=== PATIENT | female | born 1945 | race Caucasian/White ===

== ENCOUNTER 2020-01-08 14:44 | Outpatient (CLI) | payer MEDICARE, SELFPAY ==
--- NOTE | 2020-01-08 14:57 | USCV_ITS ---
Sunshine Harry Age: 74 Gender: F : 1945 Exam Date: 01/08/2020 15:17 Ordering Phys: Jessi Matta APN Technologist: Neisha Lee [place] [facility] [place] PAIN IN LEG/CELLULITIS HISTORY: Edema. Lower extremity pain. PROCEDURES: Venous duplex imaging was performed in only the left lower extremity. The following venous structures were evaluated: common femoral vein, profunda vein, proximal portion of the greater saphenous vein, superficial femoral vein, and the popliteal vein. In addition, the posterior tibial and peroneal trunk were evaluated. FINDINGS: Normal 2-D Doppler and augmentation and compressibility throughout the lower extremity venous structures. Additional imaging through the proximal calf veins also reveals no thrombus. Limited evaluation of the greater saphenous vein is patent with no thrombus. CONCLUSIONS No DVT left lower extremity. Dr. Telma Sykes DO (Electronically Signed) Final Date: 08 January 2020 16:15 S
== END 2020-01-08 14:45 | disposition home or self-care (01) ==
LOC: RAD 14:51
PROVIDERS: PCP Nurse Practitioner; Visit Provider Nurse Practitioner
DX: L03.116 Cellulitis of left lower limb (principal); M79.605 Pain in left leg; M79.89 Other specified soft tissue disorders
CPT/HCPCS: 93971

== ENCOUNTER 2020-10-23 08:05 | Outpatient (CLI) | payer MEDICARE, SELFPAY | END 2020-10-23 08:06 | disposition home or self-care (01) | LOC: WOUND 08:06 | PROVIDERS: PCP Nurse Practitioner; Visit Provider Thoracic Surgery (Cardiothoracic Vascular Surgery) | DX: L03.116 Cellulitis of left lower limb (principal) | CPT/HCPCS: 99203; G0463 ==

== ENCOUNTER 2020-10-28 06:00 | Outpatient (RCR) | payer MEDICARE, SELFPAY | END 2020-11-01 23:59 | disposition home or self-care (01) | LOC: SPT 06:00 | PROVIDERS: PCP Nurse Practitioner; Referring Provider Thoracic Surgery (Cardiothoracic Vascular Surgery); Visit Provider Thoracic Surgery (Cardiothoracic Vascular Surgery) | DX: I89.0 Lymphedema, not elsewhere classified (principal) | CPT/HCPCS: 97161 ==

== ENCOUNTER 2020-10-30 08:13 | Outpatient (CLI) | payer MEDICARE, SELFPAY | END 2020-10-30 08:14 | disposition home or self-care (01) | LOC: WOUND 08:14 | PROVIDERS: PCP Nurse Practitioner; Visit Provider Thoracic Surgery (Cardiothoracic Vascular Surgery) | DX: I83.12 Varicose veins of left lower extremity with inflammation (principal); I83.11 Varicose veins of right lower extremity with inflammation | CPT/HCPCS: 99212 ==

== ENCOUNTER 2020-11-02 06:00 | Outpatient (RCR) | payer MEDICARE, SELFPAY | END 2020-11-11 23:00 | disposition home or self-care (01) | LOC: SPT 06:00 | PROVIDERS: PCP Nurse Practitioner; Referring Provider Thoracic Surgery (Cardiothoracic Vascular Surgery); Visit Provider Thoracic Surgery (Cardiothoracic Vascular Surgery) | DX: I89.0 Lymphedema, not elsewhere classified (principal) | CPT/HCPCS: 97140 ==

== ENCOUNTER 2020-11-06 08:07 | Outpatient (CLI) | payer MEDICARE, SELFPAY | END 2020-11-06 08:08 | disposition home or self-care (01) | LOC: WOUND 08:08 | PROVIDERS: PCP Nurse Practitioner; Visit Provider Thoracic Surgery (Cardiothoracic Vascular Surgery) | DX: Z09 Encounter for follow-up examination after completed treatment for conditions other than malignant neoplasm (principal) | CPT/HCPCS: 99212 ==

== ENCOUNTER 2020-11-26 13:01 | Outpatient (CLI) | payer MEDICARE, SELFPAY ==
--- NOTE | 2020-11-26 13:12 | USCV_ITS ---
Piero Sunshine Age: 75 Gender: F : 1945 Exam Date: 11/26/2020 13:56 Ordering Phys: Dmitry Pandey MD (Andy) ([email or web address]) Technologist: Aneta Nelson Exam Location: [facility] [place] Indication: HISTORY: PROCEDURES: FINDINGS: Significant venous reflux of greater than 500 ms were noted in the left distal greater saphenous vein segment. The veins were found to be easily compressible with spontaneous blood flow. Non pulsatile flow pattern. Multiple echolucent areas were noted in the subcutaneous tissue bilaterally CONCLUSIONS 1. No evidence of DVT in the above-mentioned identifiable veins. 2. Significant venous reflux of greater than 500 ms were noted at the distal segment of the greater saphenous vein on the left side. Venous segment was measuring 0.54 cm in diameter and was at a depth of 2.06 cm. 3. No significant reflux in the deep venous system. 4. Features of fluid retention/edema bilaterally in the below-knee areas Dr Liz Chacon MD [facility]ACC (Electronically Signed) Final Date: 02 Dec 2020 10:51 S
== END 2020-11-26 13:02 | disposition home or self-care (01) ==
LOC: RAD 13:10
PROVIDERS: PCP Nurse Practitioner; Visit Provider Thoracic Surgery (Cardiothoracic Vascular Surgery)
DX: I83.11 Varicose veins of right lower extremity with inflammation (principal); I83.12 Varicose veins of left lower extremity with inflammation
CPT/HCPCS: 93970

== ENCOUNTER → 2021-03-19 09:17 | Outpatient (BNVA) | payer MEDICARE, SELFPAY | PROVIDERS: PCP Nurse Practitioner; Visit Provider Thoracic Surgery (Cardiothoracic Vascular Surgery) | DX: Z01.818 Encounter for other preprocedural examination (principal); Z20.822 Contact with and (suspected) exposure to COVID-19 | CPT/HCPCS: 87635 ==

== ENCOUNTER → 2021-04-30 09:08 | Outpatient (BNVA) | payer MEDICARE, SELFPAY | PROVIDERS: PCP Nurse Practitioner; Visit Provider Thoracic Surgery (Cardiothoracic Vascular Surgery) | DX: I83.90 Asymptomatic varicose veins of unspecified lower extremity (principal); Z20.822 Contact with and (suspected) exposure to COVID-19 | CPT/HCPCS: 87635 ==

== ENCOUNTER 2021-05-05 05:48 | Day surgery (SDC) | payer MEDICARE, SELFPAY ==
[2021-05-05 06:22] VITALS: BMI 43.2
[2021-05-05 06:44] VITALS: BP 161/94; PULSE 71; RESP 15; O2SAT 96
[2021-05-05 06:50] VITALS: BP 161/94; PULSE 71; RESP 15; TEMP 36.4; O2SAT 96
--- NOTE | 2021-05-05 06:58 | USCV_ITS ---
Sunshine Harry Age: 75 Gender: F : 1945 Exam Date: 05/05/2021 07:23 Ordering Phys: Dmitry Pandey MD (Andy) ([email or web address]) Technologist: Exam Location: [facility] [place] Indication: LT LEG GSAPH ABLATION PROCEDURES: LT LEG GSAPH ABLATION FINDINGS: GOOD ABLATION OF GSAPH ON LT EPIGASTRIC IS OPEN AND GOOD FLOW Patent saphenofemoral junction, proximal greater saphenous vein and the inferior epigastric vein CONCLUSIONS 1. The catheter tip was found to be 3.1 cm away from the saphenofemoral junction. 2. Patent saphenofemoral junction and inferior epigastric vein Dr Liz Chacon MD [facility] (Electronically Signed) Final Date: 05 May 2021 17:53 S
[2021-05-05] MEDS: diazePAM 5 mg Tablet PO (07:15)
--- NOTE | 2021-05-05 08:09 | P.OP_ITS ---
Operative Report Date of procedure: May 05, 2021 Pre-op Diagnosis: Left lower extremity venous insufficiency with ulceration Post-op diagnosis: same Procedure Done: Left greater saphenous vein radiofrequency catheter ablation Pathology: none sent Surgeon: Dmitry Pandey Anesthesia: Local Complications: None Condition: stable Disposition: same day Brief History: Ms. Harry is a 75-year-old female with recurrent cellulitis and superficial ulceration of the left lower extremity with documented left greater saphenous vein venous reflux; CEAP classification C4. She has had modest symptomatic relief with compressive therapy but due to her recurrent cellulitis and ulcerations, consideration for left greater saphenous vein ablation has been discussed and recommended. Details risk of the procedure were carefully and frankly discussed. Proper consents have been reviewed and signed. Procedure: The insufficient left greater saphenous vein was verified by ultrasound and diagrammed on the overlying skin. The varicose tributary veins and suitable access sites were identified and mapped. The affected left lower extremity was prepped and draped in the usual sterile fashion. The patient was placed in reverse Trendelenburg position. Tumescent was instilled in the skin overlying the access site for local anesthesia. The vein was accessed proximal calf using ultrasound guidance and the Seldinger technique, a guidewire was introduced through the needle, which was then exchanged over the guidewire for a 7F sheath. The RF catheter was placed on the sterile field, flushed and wiped down, prepared, and connected by a sterile cable. The patient was placed in Trendelenburg position. After RF catheter position was verified by ultrasound, tumescent anesthesia was infiltrated, under ultrasound guidance, precisely into the perivenous compartment along the entire length of vein. After the RF catheter position was again confirmed with ultrasound imaging, and under direct external compression along the length of the heating element, RF energy was applied. The vein was segmentally ablated until the treatment length is completed. Device temperature was maintained at 120 +/- degrees C with an initial power level of 40W dropping to below 20W for each treatment. Total vein length treated 37 cm. Vein diameter 2 cm. Total cycles of RF 13. Time 4 minut es and 20 seconds. Total volume tumescence used 250 cc. Repeat ultrasound of the left greater saphenous vein was performed, confirming successful treatment. The catheter and sheath were withdrawn and hemostasis established with direct pressure. After assuring hemostasis, the skin incision over the saphenous vein was closed with a bandage and graduated compression stocking(s) was applied from the level of the foot to the most proximal length of the thigh.
[2021-05-05 08:32] VITALS: BP 181/87; PULSE 60; RESP 15; TEMP 36.7; O2SAT 95
== END 2021-05-05 10:15 | disposition home or self-care (01) ==
PROVIDERS: PCP Nurse Practitioner; Visit Provider Thoracic Surgery (Cardiothoracic Vascular Surgery)
PROC: (CPT 36475; principal; 2021-05-05 07:00)
DX: I87.8 Other specified disorders of veins (principal); L03.116 Cellulitis of left lower limb
CPT/HCPCS: 36475; C1769; C1888; C1894; J7040; J7050

== ENCOUNTER 2021-05-12 14:15 | Outpatient (CLI) | payer MEDICARE, SELFPAY ==
--- NOTE | 2021-05-12 14:15 | USCV_ITS ---
Piero Sunshine Age: 75 Gender: F : 1945 Exam Date: 05/12/2021 14:36 Ordering Phys: Dmitry Pandey MD (Andy) ([email or web address]) Technologist: Exam Location: [facility] [place] Indication: POST LT SAPH ABLATION PROCEDURES: Venous duplex imaging was performed in only the left lower extremity. The following venous structures were evaluated: common femoral vein, the femoral vein, and prox great saph. FINDINGS: NORMAL FLOW IN LT EPIGASTRIC. ABLATION THROMBUS IS 1.7 CM FROM THE EPIGASTRIC. THERE IS COMPLE OCCLUSION OF THE PROX AND MID LT SAPH. THE CFV AND FV ON LT ARE NORMAL CONCLUSIONS No evidence of DVT in the common femoral and femoral vein on the left side. The saphenofemoral junction and the inferior epigastric veins are spared. Thrombus is noted in the proximal and mid greater saphenous vein causing total occlusion. Dr Liz Chacon MD FAC (Electronically Signed) Final Date: 13 May 2021 07:44 S
== END 2021-05-12 14:16 | disposition home or self-care (01) ==
LOC: US 14:19
PROVIDERS: PCP Nurse Practitioner; Visit Provider Thoracic Surgery (Cardiothoracic Vascular Surgery)
DX: I83.90 Asymptomatic varicose veins of unspecified lower extremity (principal); I82.492 Acute embolism and thrombosis of other specified deep vein of left lower extremity
CPT/HCPCS: 93971

== ENCOUNTER 2022-01-14 11:12 | Emergency (ER) | payer MEDICARE, SELFPAY ==
[2022-01-14] VITALS (7 sets, daily range): BP systolic 193–234; BP diastolic 121–128; PULSE 76–98; RESP 8–18; O2SAT 93–98
--- NOTE | 2022-01-14 11:14 | ED_ITS ---
HPI - Altered Mental Status General: Chief Complaint: Altered Mental Status Stated Complaint: unresponsive Time Seen by Provider: 01/14/22 11:13 Limitations: altered mental status History of Present Illness: Ms. Harry is a 76-year-old lady with history of hypertension who presents to the emergency department due to altered mental status. Per EMS report later confirmed by family last known well was when she went to bed last night. She was heard snoring this morning and then checked on just prior to coming to the emergency department and found to be unresponsive. History is otherwise limited by patient's mental status. After clarification clinical history no recent changes in health. Apparently EMS found the patient to be 82% on room air. Onset (ago): hour(s) Severity: severe Consistency of symptoms: Unknown Treatments prior to arrival: oxygen Review of Systems General: Reports: ROS unobtainable due to mental status PFS ED PFSH: Medical History Venous stasis Surgical History Status post endovenous radiofrequency ablation of saphenous vein Family History Mother CAD (coronary artery disease) Sister CAD (coronary artery disease) Brother CAD (coronary artery disease) Cancer Diabetes Other Suicide Denies family history of Hyperlipidemia Psychiatric illness Lung disease Hypertension Stroke Social History Alcohol intake: never Lives independently: Yes Household members: spouse Marital status: Physical Exam Const: GENERAL APPEARANCE: ill appearing NUTRITIONAL APPEARANCE: obese ORIENTATION/CONSCIOUSNESS: Yes patient obtunded HENMT: COMMON NORMALS: normocephalic and atraumatic HEAD & SCALP: normocephalic and atraumatic THROAT: posterior oropharynx normal OTHER: Oral secretions and airway suctioned. Upper dentures removed prior to intubation Eye: COMMON NORMALS: conjunctivae normal CONJUNCTIVA: Yes conjunctivae normal SCLERA: sclerae normal OTHER: Pupils 4 mm bilaterally, not reactive to light, no reflex to threat Neck/C-Spine: COMMON NORMALS: supple GENERAL: Yes trachea midline Resp: COMMON NORMALS: normal respiratory effort EFFORT & INSPECTION: Yes labored AUSCULTATION: bronchial breath sounds Cardio: COMMON NORMALS: regular rate and regular rhythm RATE: regular rate RHYTHM: regular rhythm GI: COMMON NORMALS: Soft to palpation PALPATION: Yes Soft to palpation and No Tenderness to palpation present (GI) PERCUSSION: normal to percussion Extremity: GENERAL: Yes normal exam except as noted and No edema Neuro: SENSORIUM/ORIENTATION: Yes obtunded Psych: MEMORY/COGNITION: Yes cognition grossly impaired Procedures Arterial Line Time Out Performed: Yes Size (Gauge): 18 Technique Used: guide wire technique Post-Procedure: line sutured into place and dry sterile dressing placed Patient Tolerated Procedure: well and no complications Complications: none Site: left and radial Additional Comments: ultrasound guided Intubation Time out performed: Yes sedative: Etomidate Mg Given: 30 paralytic: Vecuronium Mg Given: 10 Laryngoscope: fiber optic video scope ET Tube Size: 8 ET Tube Uncuffed: No Tube Secured Depth (cm): 23 Tube Secured Location: teeth Tube Placement Confirmation: visualized tube passing through cords, equal breath sounds bilaterally, no breath sounds over epigastrium and confirmation by capnometry (Colorimetric) Patient Tolerated Procedure: well Intubation Complications: none Course ED course: - Patient was seen and evaluated by me at bedside - Patient placed on cardiac monitors, IV access obtained - Initial evaluation notable for ill appearance. GCS 3. Patient has oral secretions which were suctioned however patient not adequately protecting airway and I made the decision to intubate the patient. Glucose in the 180s range prior to intubation. No evidence of hypercapnia resulting in mental status change on initial ABG. - Patient intubated as noted in procedures with glide scope and 8.0 cuffed ET tube. X-ray reviewed at bedside with satisfactory placement approximately 1-2 i nches above the amanda. - Labs and xrays personally interpreted by me. - Propofol ordered for sedation along with fentanyl drip - Labs notable for leukocytosis, mild hemoconcentration. Metabolic panel with decreased anion gap, creatinine elevated with unclear baseline. Initial lactate elevated at 3.4 with significant increased to 11.5 on repeat. Baseline troponin 100 with delta troponin of 100.6 up to a total of 200.6. BNP elevated 7300 - Unclear etiology of NSTEMI. EKG shows new onset atrial fibrillation however rate is controlled and there are nonspecific ST segment abnormalities however no STEMI. - Given leukocytosis with elevated lactic acid 30 cc/kg ideal body weight fluid bolus ordered along with empiric antibiotic dose of Zosyn due to consideration of complex infection as cause of altered mental status - Imaging notable for increased density throughout the superior sagittal sinus consistent with acute superior sagittal sinus thrombosis with increased density extending into the straight sinus and transverse sinuses. Small amount of blood and calcification along the anterior and interhemispheric falx. CT chest abdomen pelvis without contrast without other significant acute pathology to explain symptoms, there is moderate bilateral pulmonary opacifications which radiology reports is more likely atelectasis or lower lung volumes though underlying mass or pneumonia cannot be excluded. - OG tube placed. - Upon serial reexamination after treatment the patient was similar. She did have movements in bilateral lower extremities but did not follow commands. - Based on patient history, evaluation, and testing as interpreted the most likely cause of the patient's condition is cerebral venous thrombosis resulting in altered mental status - The results of ED evaluation were discussed with the patient's family including plan for transfer due to requirement for level of care not available if discharged to prevent significant worsening/deterioration. Specifically pat ient requires neuro critical care and potential neurosurgical assessment - Discussed with Dr. Martinez at [facility] in [facility] who accepted the patient as a transfer. - Arterial line placed noting hypertension consistent with cuff pressure We will plan for gentle blood pressure control. Upon radiology review of CTV somewhat limited however more consistent with slow flow as opposed to thrombosis, still somewhat unclear. [id number] echo performed with limited sonographic windows of the cardiac structures. RA and LA appear dilated consistent with A. fib. Estimate mildly reduced ejection fraction. - Etiology of symptoms remains somewhat unclear. The patient was mildly hypoxic upon EMS arrival which was not initially noted however initial ABG prior to intubation with supplemental oxygen in place was relatively unremarkable given severity of patient's symptoms. Anoxic brain injury seems less likely but more consistent with imaging. Unfortunate situation. Discussed case with neurology after initial CT scan read and later during care. Patient outside tPA window given unclear time of symptom onset and likely contraindicated further given severity of NIHSS so patient was not stroke activated upon initial arrival. - Given critical nature of patient condition including potential time sensitive neurosurgical assessment patient requires fastest available needs of transfer Note: Click bubbles or prepopulated schafer in note writing are used for assistance with data collection and billing and are inherently more limited than narrative and other text portions of this note. Please use narrative for additional clinical history and defer to narrative/free test for any case of contradictory information. If information appears in only free text or click bubble it should be considered present or absent as reported. Please contact note freelance copywriter for clarifications of clinical information or contradictory information. MDM is a brief summary, contradictory or erroneous seeming information should be clarified and full note should be reviewed. Vital Signs: Vital signs: Vital Signs Pulse Rate 76 01/14/22 15:04 Respiratory Rate 16 01/14/22 15:04 Blood Pressure 199/123 01/14/22 15:04 Pulse Oximetry 96 01/14/22 15:04 MDM - Altered Mental Status Medical Decision Making 76-year-old lady presenting with altered mental status. Patient went to bed normal last night and was found approximately 11 AM this morning with unresponsiveness. Patient GCS of 3 upon arrival and patient intubated. Initial CT without contrast of the head concerning for venous sinus thrombosis however upon obtaining CTV this seems less clear. Exact etiology of patient's altered mental status is unclear, neurologic exam certainly concerning for poor prognosis. Given patient's need for neuro critical care as well as possible neurosurgery for ICP monitoring she will be transferred and was accepted at [facility] for further management. Updated family at bedside. Left emergency department with air EMS crew in critical condition with unclear prognosis. Medical Records I reviewed the patient's medical records. Lab Data I reviewed the patient's lab results. : 01/14/22 11:21 01/14/22 11:[address] 01/14/22 11:14 IMPRESSION: 1. Increased density throughout the superior sagittal sinus consistent with an acute superior sagittal sinus thrombosis. Increased density extends along the straight sinus and the transverse sinuses. This increased density is most typically seen with acute thrombosis of the venous sinuses. Similar hyperdense sinus can be seen with a very high hematocrit level. 2. Small amount of blood or calcification along the anterior interhemispheric falx. Notified Demetrio Black MD at 01/14/2022 1:06 PM. Chest/Abdomen/Pelvis CT 01/14/22 11:34 IMPRESSION: 1. Endotracheal tube in good position. 2. Moderate bilateral pulmonary opacifications, probably atelectasis and low lung volumes. Underlying mass or pneumonia may also be present. 3. No acute abdominal or pelvic abnormalities are identified. 4. Prior cholecystectomy. 5. Moderate fluid distention of the stomach. 6. Bilateral renal atrophy with LEFT renal cyst. 7. Soft tissue stranding along the midline of the anterior chest. May be due to recent trauma or chest compression. Chest X-Ray 01/14/22 13:18 Impression: OG tube probably within the stomach. Head CTA 01/14/22 13:38 IMPRESSION: 1. Poor opacification superior sagittal sinus. This may be due to partial thrombosis or slow flowing blood or elevated hematocrit. 2. Loss of the marshall-white matter differentiation diffusely suggesting of an d iffuse ischemic event. Poor opacification of the cerebral veins may be related to poor cardiac output and poor perfusion to the brain. Findings are suspicious for diffuse acute anoxic event. Also since the prior examination earlier there is questionable increase in the cerebral edema. 24-hour CT follow-up would help confirm this finding. Notified Demetrio Black MD at 01/14/2022 3:09 PM. Laboratory Results WBC 15.0 10^3/uL (4.0-10.0) H 01/14/22 11:21 RBC 4.91 10^6/uL (4.1-5.3) 01/14/22 11:21 Hgb 16.4 g/dL (11.5-15.3) H 01/14/22 11:21 Hct 46.7 % (37.0-47.0) 01/14/22 11:21 MCV 95.1 fl (81-99) 01/14/22 11:21 MCH 33.4 pg (28.0-34.0) 01/14/22 11:21 MCHC 35.1 g/dL (30.0-36.0) 01/14/22 11:21 RDW 12.7 % (12.1-15.1) 01/14/22 11:21 Plt Count 219 10^3/cmm (130-400) 01/14/22 11:21 MPV 10.4 fL (7.4-10.4) 01/14/22 11:21 Neut % (Auto) 90.4 % 01/14/22 11:21 Lymph % (Auto) 5.7 % 01/14/22 11:21 [place] % (Auto) 3.1 % 01/14/22 11:21 Eos % (Auto) 0.0 % 01/14/22 11:21 Baso % (Auto) 0.3 % 01/14/22 11:21 Neut # (Auto) 13.54 10^3/uL (1.8-7.7) H 01/14/22 11:21 Lymph # (Auto) 0.9 10^3/uL (0.8-4.8) 01/14/22 11:21 [place] # (Auto) 0.5 10^3/uL (0.2-0.9) 01/14/22 11:21 Eos # (Auto) 0.0 10^3/uL (0.0-0.8) 01/14/22 11:21 Baso # (Auto) 0.1 10^3/uL (0.0-0.1) 01/14/22 11:21 Nucleated RBC % (auto) 0 % 01/14/22 11:21 Nucleated RBCs # 0.0 /100WBC 01/14/22 11:21 PT 14.50 SECONDS (12.1-14.9) 01/14/22 16:09 INR 1.10 (0.8-1.2) 01/14/22 16:09 APTT 35.8 SECONDS (23.9-36.7) 01/14/22 16:09 Specimen Type Arterial 01/14/22 13:00 Sample Site Brachial, left 01/14/22 13:00 ABG pH 7.47 (7.35-7.45) H 01/14/22 13:00 ABG pCO2 34.8 mmHg (35-45) L 01/14/22 13:00 ABG pO2 179.0 mmHg (80.0-100.0) H 01/14/22 13:00 ABG HCO3 25.5 mmol/L (22-26) 01/14/22 13:00 ABG Base Excess 2.3 mmol/L (-2.0-2.0) H 01/14/22 13:00 Manjit Test Pos 01/14/22 13:00 Hematocrit 50.8 % (37-47) H 01/14/22 13:00 O2 Delivery Device Vent 01/14/22 13:00 O2 Liters/Min 3.5 % 01/14/22 11:20 FiO2 70.0 % 01/14/22 13:00 Tidal Volume 0.50 01/14/22 13:00 PEEP 5.0 cmH20 01/14/22 13:00 Automatic Machine Attendant ID Cak 01/14/22 13:00 Sodium 140 mmol/L (136-145) 01/14/22 11:21 Potassium 4.1 mmol/L (3.5-5.1) 01/14/22 11:21 Chloride 99 mmol/L (98-107) 01/14/22 11:21 Carbon Dioxide 25 mmol/L (22-29) 01/14/22 11:21 Anion Gap 20.1 (5-19) H 01/14/22 11:21 BUN 22 mg/dL (8-23) 01/14/22 11:21 Creatinine 1.7 mg/dL (0.5-0.9) H 01/14/22 11:21 GFR Calculation Not Reportable 01/14/22 11:21 Glucose 189 mg/dL (65-115) H 01/14/22 11:21 POC Glucose 186 mg/dL (70-110) H 01/14/22 11:18 Calculated Osmolality 298 mOsm/kg (285-295) H 01/14/22 11:21 Lactic Acid 11.5 mmol/L (0.5-2.2) H* 01/14/22 13:31 Lactic Acid (Sepsis) 8.1 mmol/L (0.5-2.2) H* 01/14/22 15:48 Lactate 3.4 mmol/L (0.5-2.2) H 01/14/22 11:21 Calcium 9.6 mg/dL (8.5-10.5) 01/14/22 11:21 Magnesium 1.9 mg/dL (1.7-2.3) 01/14/22 11:21 Total Bilirubin 0.7 mg/dL (0.15-1.2) 01/14/22 11:21 AST 22 U/L (0-32) 01/14/22 11:21 ALT 17 U/L (0-33) 01/14/22 11:21 Alkaline Phosphatase 97 IU/L (35-105) 01/14/22 11:21 Troponin T Baseline 100 ng/L (0-10) H 01/14/22 11:21 Troponin T 120 Minute 200.6 ng/L (0-10) H 01/14/22 13:31 Delta Troponin T 100.6 ABS# (0-10) H* 01/14/22 13:31 Troponin T Hi Sens 6Hr 388.1 ng/L (0-10) H 01/14/22 17:28 Troponin T Hi Sens 6Hr Delta 288.1 ng/L (0-12) H* 01/14/22 17:28 C-Reactive Protein 5.5 mg/L (0.0-4.9) H 01/14/22 11:21 NT-Pro-B Natriuret Pep 7353 pg/mL (0-450) H 01/14/22 11:21 Total Protein 7.6 g/dL (6.6-8.7) 01/14/22 11:21 Albumin 4.1 g/dL (3.5-5.2) 01/14/22 11: Globulin 3.5 g/dL (1.3-4.6) 01/14/22 11: TSH 3.15 uIU/mL (0.27-4.20) 01/14/22 11:21 Urine Color Yellow (Yellow) 01/14/22 15:05 Urine Appearance Clear (CLEAR) 01/14/22 15:05 Urine pH 6 (5-7) 01/14/22 15:05 Ur Specific [place] 1.020 (1.005-1.030) 01/14/22 15:05 Urine Protein 2+ (Negative) H 01/14/22 15:05 Urine Glucose (UA) Norm (Normal) 01/14/22 15:05 Urine Ketones Negative (Negative) 01/14/22 15:05 Urine Blood 3+ (Negative) H 01/14/22 15:05 Urine Nitrate Negative (Negative) 01/14/22 15:05 Urine Bilirubin Neg (Negative) 01/14/22 15:05 Urine Urobilinogen Norm mg/dL (Negative) 01/14/22 15:05 Ur Leukocyte Esterase Negative (Negative) 01/14/22 15:05 Urine RBC 0-4 /hpf (0-2) H 01/14/22 15:05 Urine WBC 5-10 /hpf (0-5) H 01/14/22 15:05 Ur Squamous Epith Cells 0-4 /hpf (0-5) H 01/14/22 15:05 Amorphous Sediment Not Reportable 01/14/22 15:05 Urine Bacteria Trace /hpf (NONE) 01/14/22 15:05 Salicylates < 0.3 mg/dL (3-10) L 01/14/22 11:21 Acetaminophen < 5.0 ug/mL (10-30) L 01/14/22 11:21 Ethyl Alcohol < 10 mg/dL (0-10) 01/14/22 11:21 SARS-CoV-2 Ag (Rapid) Negative (Negative) 01/14/22 16:45 Critical Care Time Critical Care Time: Critical Care Time: Yes Total Critical Care Time: 120 Attestation: Due to a high probability of clinically significant, possibly life threatening deterioration, the patient required my highest level of attention and preparedness to intervene emergently and I personally spent this critical care time directly and personally managing the patient. This critical care time included obtaining a history; examining the patient; pulse oximetry; ordering and review of laboratory and imaging studies; arranging urgent treatment with development of a management plan; evaluation of patient's response to treatment; frequent reassessment; and, discussions with other providers as applicable. It was exclusive of separately billable procedures. Primary system involved is neuro Discharge Plan Discharge Patient Disposition: Xfer Short-Term Hosp Clinical Impression: Altered mental status, Acute respiratory failure with hypoxia, Hypertension, Acidosis, lactic, Leukocytosis, Acute non-ST elevation myocardial infarction (NSTEMI), Atrial fibrillation, new onset Condition: Critical Referrals: Jessi Matta APN [Primary Care Provider] - Coding Level of Care Code ED Disability Counselor for Chg Fwd Exam Comprehensive
--- NOTE | 2022-01-14 11:14 | CT_ITS ---
WS: [id number] CT HEAD NONCONTRAST HISTORY: ams TECHNIQUE: Contiguous axial imaging performed through the brain in 2.5 mm imaging. Bone and soft tiss ue windows. Sagittal and coronal reformats reviewed. All CT scans at [facility] use at least one of these dose optimization techniques: automated exposure control; mA and/or kV adjustment per pa tient size (includes targeted exams where dose is matched to clinical indication); or iterative recon struction. DLP: 1057.18 mGy.cm COMPARISON: None available. Quality of this examination is suboptimal. Increased density along the superior sagittal sinus to the level of the torcula. Increased density ex tends into the transverse sinuses. There is a small amount of increased density along the anterior in terhemispheric falx which could be calcification or blood. Very minimal atrophy. No hemorrhagic infarct. Slight loss of the marshall-white matter could be due to p oor technique. Small amount of intracranial edema may appear similar. Ventricles: Normal size with no hydrocephalus. No inferior displacement of cerebellar tonsils. Paranasal sinuses: As visualized are clear. Mastoid air cells: Well pneumatized. Calvarium and scalp: Skull is intact with no soft tissue edema or swelling. CT/CT head wo con* [id number] IMPRESSION: 1. Increased density throughout the superior sagittal sinus consistent with an acute superior sagittal sinus thrombosis. Increased density extends along the straight sinus and the transverse sinuses. This increased density is most typic ally seen with acute thrombosis of the venous sinuses. Similar hyperdense sinus can be seen with a very high hematocrit level. 2. Small amount of blood or calcification along the anterior interhemispheric falx. Notified Demetrio Black MD at 01/14/2022 1:06 PM.
--- NOTE | 2022-01-14 11:14 | XR_ITS ---
WS: [id number] Portable AP supine chest, 01/14/2022 Clinical Data: ams Comparison: None. Findings: The endotracheal tube has been inserted and remains above the trachea. No pneumothorax is s een. There is a monitor lead over the left upper chest. XR/XR chest 1V portable [id number] Impression: Satisfactory insertion of endotracheal tube.
--- NOTE | 2022-01-14 11:15 | ECG_ITS ---
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 Measurements Intervals [place] Rate: 67 P: [place]: QRS: 39 QRSD: 101 T: 60 QT: 450 QTc: 477 Interpretive Statements ATRIAL FIBRILLATION SEPTAL MYOCARDIAL INFARCTION , OF INDETERMINATE AGE [40+ ms Q WAVE IN V1/V2] Compared to ECG 01/14/2022 12:03:36 ST (T wave) deviation no longer present Myocardial infarct finding still present Electronically Signed On 01-14-2022 23:41:49 CDT by Liz Chacon M.D. [id number]
[2022-01-14 11:21] LABS: Glucose Point of Care 186 mg/dL (70-110)
[2022-01-14 11:30] LABS: ABG PCO2 38.5 mmHg (35-45); ABG PH Result 7.46 (7.35-7.45); Arterial Blood Gas Hematocrit 51.6 % (37-47); Base Excess ABG 3.2 mmol/L (-2.0-2.0); Blood Gas Allen Test Pos; Blood Gas LPM 3.5 %; Blood Gas Sample Site Radial, left; Blood Gas Sample Type Arterial; HCO3 ABG 27.2 mmol/L (22-26); Oxygen Device NC
[2022-01-14 11:30] LABS: Basophils # 0.1 10^3/uL (0.0-0.1); Basophils % 0.3 %; Hematocrit 46.7 % (37.0-47.0); Hemoglobin 16.4 g/dL (11.5-15.3); Lymphocytes # 0.9 10^3/uL (0.8-4.8); Lymphocytes % 5.7 %; Mean Corpuscular HGB Conc 35.1 g/dL (30.0-36.0); Mean Corpuscular Hemoglobin 33.4 pg (28.0-34.0); Mean Corpuscular Volume 95.1 fl (81-99); Mean Platelet Volume 10.4 fL (7.4-10.4); Monocytes # 0.5 10^3/uL (0.2-0.9); Monocytes % 3.1 %; Neutrophils # 13.54 10^3/uL (1.8-7.7); Neutrophils % 90.4 %; Nucleated Red Blood Cells % 0 %; Platelet Count 219 10^3/cmm (130-400); Red Blood Count 4.91 10^6/uL (4.1-5.3); Red Cell Distribution Width 12.7 % (12.1-15.1)
[2022-01-14] MEDS: vecuronium 10 mg SDV IVP (11:32)
--- NOTE | 2022-01-14 11:34 | CT_ITS ---
WS: [id number] CT CHEST, ABDOMEN AND PELVIS NONCONTRAST HISTORY: AMS TECHNIQUE: Contiguous 5 mm axial imaging performed through the chest, abdomen and pelvis without IV c ontrast, oral contrast has not been provided. Coronal and sagittal reformats chest. Coronal and sagit abdulkadir reformats through the abdomen and pelvis. All CT scans at [facility] use at least one of these dose optimization techniques: automated exposure control; mA and/or kV adjustment per patient s ize (includes targeted exams where dose is matched to clinical indication); or iterative reconstructi on. CONTRAST: None DLP: 1688.49 mGy.cm COMPARISON: None available. Chest CT: Patient is intubated. Endotracheal tube tip extends to just above the amanda. Lung volumes are decreased. There are bilateral areas of atelectasis at the lung bases and areas of consolidation. No pneumothorax or significant pleural effusions. Heart is mildly enlarged. There is soft tissue stranding along the midline of the anterior chest wall. Recent trauma or possibl e resuscitation effort may be responsible for this. Normal-sized thoracic aorta. No rib fractures are identified. No adenopathy identified on this unenhanced exam. Abdomen CT: Prior cholecystectomy. Significant artifact through the abdominal structures by patient's body habitus and arms. Liver and spleen are negative. Pancreas is normal. No adrenal mass. Moderate atrophy of the RIGHT kidney. LEFT renal cyst measures 5.3 x 5.4 cm. No obstruction. Moderate atherosc lerotic plaque within the aorta. No aneurysm. No retroperitoneal or mesenteric hematoma. Moderate flu id distention of the stomach. No small bowel obstruction. No mucosal thickening or ischemic changes w ithin the GI tract. Pelvic CT: Moderately distended urinary bladder. No free fluid in the pelvis. No adenopathy. Prior hy sterectomy. No destructive bone lesions are identified. CT/[place] [id number] IMPRESSION: 1. Endotracheal tube in good position. 2. Moderate bilateral pulmonary opacifications, probably atelectasis and low l mikhail volumes. Underlying mass or pneumonia may also be present. 3. No acute abdominal or pelvic abnormalities are identified. 4. Prior cholecystectomy. 5. Moderate fluid distention of the stomach. 6. Bilateral renal atrophy with LEFT renal cyst. 7. Soft tissue stranding along the midline of the anterior chest. May be due t o recent trauma or chest compression.
--- NOTE | 2022-01-14 11:50 | PC.NURSE ---
PT ARRIVED TO THE ED UNRESPONSIVE. PHYSICIAN GAVE VERBAL ORDERS TO INTIBAIT PT. PHYSICIAN GAVE VERBAL ORDERS TO GIVE 30MG ETOMIDATE AND 10MG VECERONIUM. TIMEOUT CALLED AT 1129. ETOMIDATE GIVEN AT 1131. VECERONIUM GIVEN AT 1132. TUBE PLACED 8MM MEASURING 23 AT THE TEETH.
[2022-01-14 11:55] LABS: Lactate (Lactic Acid level) 3.4 mmol/L (0.5-2.2)
[2022-01-14 11:57] LABS: Troponin(5th) Baseline 100 ng/L (0-10)
[2022-01-14 12:06] LABS: Alanine Aminotransferase 17 U/L (0-33); Albumin Level 4.1 g/dL (3.5-5.2); Alkaline Phosphatase 97 IU/L (35-105); Anion Gap 20.1 (5-19); Aspartate Amino Transferase 22 U/L (0-32); Blood Urea Nitrogen 22 mg/dL (8-23); C Reactive Protein 5.5 mg/L (0.0-4.9); Calcium 9.6 mg/dL (8.5-10.5); Carbon Dioxide 25 mmol/L (22-29); Chloride 99 mmol/L (98-107); Globulin 3.5 g/dL (1.3-4.6); Glucose 189 mg/dL (65-115); Magnesium 1.9 mg/dL (1.7-2.3); Osmolality Calculated 298 mOsm/kg (285-295); Potassium 4.1 mmol/L (3.5-5.1); Sodium 140 mmol/L (136-145); Thyroid Stimulating Hormone 3.15 uIU/mL (0.27-4.20); Total Bilirubin 0.7 mg/dL (0.15-1.2); Total Protein 7.6 g/dL (6.6-8.7)
[2022-01-14 12:09] LABS: Acetaminophen < 5.0 ug/mL (10-30); Alcohol Level < 10 mg/dL (0-10); Salicylate < 0.3 mg/dL (3-10)
[2022-01-14] MEDS: propofol 1,000 MG/100 ML INJ 3.27 MG IV (12:14)
[2022-01-14 12:29] LABS: NT Pro B Type Natriuretic Pept 7353 pg/mL (0-450)
[2022-01-14 13:12] LABS: ABG PCO2 34.8 mmHg (35-45); ABG PH Result 7.47 (7.35-7.45); Arterial Blood Gas Hematocrit 50.8 % (37-47); Base Excess ABG 2.3 mmol/L (-2.0-2.0); Blood Gas Allen Test Pos; Blood Gas Operator Identificat CAK; Blood Gas Sample Site Brachial, left; Blood Gas Sample Type Arterial; HCO3 ABG 25.5 mmol/L (22-26); Oxygen Device VENT
--- NOTE | 2022-01-14 13:15 | ECG_ITS ---
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 Measurements Intervals [place] Rate: 78 P: [place]: QRS: -1 QRSD: 96 T: 61 QT: 402 QTc: 460 Interpretive Statements ATRIAL FIBRILLATION SEPTAL MYOCARDIAL INFARCTION , OF INDETERMINATE AGE [40+ ms Q WAVE IN V1/V2] ST DEPRESSION, CONSIDER SUBENDOCARDIAL INJURY [0.1+ mV ST DEPRESSION] No previous ECG available for comparison Electronically Signed On 01-14-2022 23:46:55 CDT by Liz Chacon M.D. [id number]
--- NOTE | 2022-01-14 13:18 | XR_ITS ---
WS: [email or web address] Portable AP supine chest, 01/14/2022, 1345 hours. Clinical Data: NG tube placement Comparison: Portable chest, 01/14/2022, 1136 hours Findings: The OG tube is within the esophagus and appears to be curled in the fundus of the stomach. The distal tip is not seen. The endotracheal tube remains above the amanda. XR/XR chest 1V portable [id number] Impression: OG tube probably within the stomach.
[2022-01-14] MEDS: piperacillin-tazobactam 4.5 GM in sodium chloride 0.9% (plus) 50 ML IV (13:23)
[2022-01-14] MEDS: sodium chloride 0.9% 1,710 ML 1710 ML IV (13:24)
--- NOTE | 2022-01-14 13:38 | CT_ITS ---
WS: [id number] CT cerebral venogram. HISTORY: Possible thrombosis. TECHNIQUE: Postcontrast imaging through the brain. CT venogram is performed of the cerebral veins. Al l CT scans at [facility] use at least one of these dose optimization techniques: automated exp osure control; mA and/or kV adjustment per patient size (includes targeted exams where dose is matche d to clinical indication); or iterative reconstruction. CONTRAST: Visipaque 320; 95 mL IV. DLP: 2170.98 mGy.cm COMPARISON: Noncontrast CT head 01/14/2022. Poor opacification of the cerebral veins. There is an abrupt termination of the contrast at the fract ure torcula. Increased density within superior sagittal sinus may be due to poor flow or partial prio r thrombosis. The straight sinus is intact. There is loss of the marshall-white matter differentiation throughout the brain. This is better visualize d on this CT examination as compared to the study obtained earlier. Loss of the marshall-white suggesting diffuse cerebral edema. There is no herniation or midline shift. Insular ribbons have been obliterat ed. CT/CT angio head [id number] IMPRESSION: 1. Poor opacification superior sagittal sinus. This may be due to partial thro mbosis or slow flowing blood or elevated hematocrit. 2. Loss of the marshall-white matter differentiation diffusely suggesting of an di ffuse ischemic event. Poor opacification of the cerebral veins may be related t o poor cardiac output and poor perfusion to the brain. Findings are suspicious for diffuse acute anoxic event. Also since the prior examination earlier there is questionable increase in the cerebral edema. 24-hour CT follow-up would help confirm this finding. Notified Demetrio Black MD at 01/14/2022 3:09 PM.
[2022-01-14 14:09] LABS: Lactic Sepsis W/Reflex 11.5 mmol/L (0.5-2.2)
[2022-01-14 14:10] LABS: Troponin 5 2HR 200.6 ng/L (0-10); Troponin 5 2HR Delta 100.6 ABS# (0-10)
[2022-01-14] MEDS: iodixanol 320 mg/mL 100mL Btl IV (14:40)
[2022-01-14 15:21] LABS: Reflex Lactate Order REFLEX LACTIC ORDERD
--- NOTE | 2022-01-14 15:35 | PC.NURSE ---
PHYSICIAN NOTIFED OF 2HR TROPONIN 200.6 AND LACTIC 11.5
--- NOTE | 2022-01-14 15:36 | PC.NURSE ---
PHYSICIAN PLACED ART LINE IN LEFT RADIAL ARTERY.
[2022-01-14] MEDS: sodium chloride 0.9% 500 ML 999 ML IV (15:56)
[2022-01-14 15:58] LABS: Add Urine Microscopic? YES; Bilirubin Urine Neg (Negative); Blood Urine 3+ (Negative); Glucose Urine UA Norm (Normal); Ketones Urine Negative (Negative); Leukocyte Esterase Urine Negative (Negative); Nitrate Urine Negative (Negative); Protein Urine 2+ (Negative); Urine Appearance Clear (CLEAR); Urine Color Yellow (Yellow); Urobilinogen Urine Norm (Negative); pH Urine 6 (5-7)
[2022-01-14 15:59] LABS: Add Urine Culture? No; Bacteria Urine TRACE /hpf; RBC Urine 0-4 /hpf (0-2); Squamous Epithelial Cell Urine 0-4 /hpf (0-5)
[2022-01-14 16:29] LABS: Lactic Acid level (Lactate) 8.1 mmol/L (0.5-2.2)
--- NOTE | 2022-01-14 16:30 | PC.NURSE ---
PHYSICIAN NOTIFIED OF CRITICAL LAB VALUE LACTIC 8.1. NO VERBAL ORDERS GIVEN AT THIS TIME.
[2022-01-14 16:38] LABS: Partial Thromboplastin Time 35.8 SECONDS (23.9-36.7)
[2022-01-14 17:22] LABS: SARS Covid-2 Antigen Negative (Negative)
[2022-01-14] MEDS: nicardipine 20 MG/200 ML PREMIX 50 MG IV (17:32)
--- NOTE | 2022-01-14 17:44 | PM.CONSULT ---
Providers/Reason For Consult Consulting Physician/Specialty*: Richard Black/emergency medicine Reason for Consult*: Central vein occlusion Requesting Physician: Dr. Black Primary Care Provider: Jessi Matta APN History of Present Illness History of Present Illness Sunshine Harry is a 76 year old woman who was last known to be well having 11:00 last night. She had her usual outings yesterday with a group of her friends and was active throughout the day, feeling fine with no complaints. She and her daughter typically play cards until around midnight but at 11:00 last night she declared that she was feeling tired and she went to bed. Her usually bangs on her door in the morning and this morning she did not come out. Her daughter could hear her snoring. When they went to check on her they could not wake her up. She was brought to the emergency department where she was seen by Dr. Black. CT scan of the head showed increased density in the central veins suggesting diffuse cerebral vein occlusion, although there was no edema or suggestion of stroke. Dr. Black called me and I reviewed her CAT scan and recommended CT venogram. I remained in my office seeing patients but I reviewed her venogram as soon as it was completed and discovered that there was no sign of venous occlusion. I came to the emergency department and reviewed the history with the patient's granddaughter and then her daughter and I examined the patient. There is no sign of brain activity. The patient received paralytic agent for intubation 5 hours ago as she was not breathing on arrival Dr. Black intubated her to protect her airway. She is on light sedation with propofol and fentanyl but she has no sign of brainstem activity. She has no history of coronary disease. She was breathing when her daughter found her. Dr. Black thought that she was moving her feet when she first came in. She has no previous history of stroke and no history of muscular abnormalities in the right arm. Medications/Allergies Home Medications Medication Instructions Recorded Confirmed Last Taken Type atenolol 50 mg tablet 50 mg PO BID 01/02/21 01/14/22 Unknown History gabapentin 300 mg capsule 300 mg PO BID 01/02/21 01/14/22 Unknown History meloxicam 15 mg tablet 15 mg PO DAILY 01/02/21 01/14/22 Unknown History potassium chloride 20 mEq 20 meq PO BID 01/02/21 01/14/22 Unknown History tablet,extended release furosemide 20 mg tablet 20 mg PO BID 05/21/21 01/14/22 Unknown History ascorbic acid (vitamin C) 500 mg 500 mg PO DAILY 01/14/22 01/14/22 Unknown History tablet (Vitamin C) candesartan 8 mg tablet 8 mg PO DAILY 01/14/22 01/14/22 Unknown History cholecalciferol (vitamin D3) 50 50 mcg PO DAILY 01/14/22 01/14/22 Unknown History mcg (2,000 unit) capsule (Vitamin D3) hydrochlorothiazide 50 mg tablet 50 mg PO DAILY 01/14/22 01/14/22 Unknown History Allergies Allergy/AdvReac Type Severity Reaction Status Date / Time No Known Allergies Allergy Verified 01/14/22 13:47 Current Medications Generic Name Dose Route Start Last Admin Trade Name Freq PRN Reason Stop Dose Admin Propofol 1,000 mg in 100 mls @ 0 mls/hr 01/14/22 11:45 01/14/22 17:25 Diprivan IV 35 mcg/kg/min .Q0M MICHELLE 22.89 mls/hr Titration Protocol Per Protocol Fentanyl 2,500 mcg/ Sodium 250 mls @ 0 mls/hr 01/14/22 11:45 01/14/22 17:16 Chloride IV 50 mcg/hr .Q0M MICHELLE 5 mls/hr Titration Protocol Per Protocol Nicardipine/Sodium Chloride 20 mg in 200 mls @ 0 mls/hr 01/14/22 16:30 01/14/22 17:32 Cardene IV 5 mg/hr .Q0M MICHELLE 50 mls/hr Administration Protocol Per Protocol PFSH Acute PFSH: Medical History Venous stasis Surgical History Status post endovenous radiofrequency ablation of saphenous vein Family History Mother CAD (coronary artery disease) Sister CAD (coronary artery disease) Brother CAD (coronary artery disease) Cancer Diabetes Other Suicide Denies family history of Hyperlipidemia Psychiatric illness Lung disease Hypertension Stroke Social History Alcohol intake: never Lives independently: Yes Household members: spouse Marital status: Vitals/I&O/Wt Last Vital Signs Pulse 76 01/14/22 15:04 Resp 16 01/14/22 15:04 BP 199/123 01/14/22 15:04 Pulse Ox 96 01/14/22 15:04 01/14/22 01/14/22 01/14/22 06:59 14:59 22:59 Intake Total 32.938 / 32.938 Balance 32.938 / 32.938 Weight last 48 hrs Weight 220 lb Physical Exam Narrative: Mental status exam: She does not respond to pain. She does not follow commands. Cranial nerves: Corneals absent bilaterally. No response to brow pressure. Pupils midposition fixed. Oculocephalic movements absent. No response to disturbance with the endotracheal tube. Motor/sensory: Toes bilaterally upgoing. Other than upgoing toes, no response to pain. Deep tendon reflexes otherwise absent. Cardiovascular: S1 and S2 normal without murmur or gallop. Chest: Clear to auscultation. Laboratory exam: White count elevated at 15 with normal H&H. Initial blood gas performed at 1120 showed a pH of 7.46, PCO2 38.5, PO2 116. Lactic acid 11.5 (0.5?2.2) Troponin T 100 (0?10) and at 120 minutes 200.6. UA unremarkable. Toxicology showing no salicylates or acetaminophen. SARS-CoV-2 negative rapid Urinary Catheter Management: Babcock: Cath Placed During This Visit: yes Urinary Catheter Date of Insertion: 01/14/22 Urinary Catheter Time of Insertion: 15:00 Data : 01/14/22 11:21 01/14/22 11:21 Other Labs: Initial CT scan of the head showed increased density throughout the superior sagittal sinus suggesting thrombosis extending into the straight sinus and transverse sinus. CT angiogram performed several hours later showed loss of marshall-white matter differentiation diffusely suggesting diffuse ischemia and suspicious for anoxic encephalopathy. Micro: Microbiology 01/14/22 11:57 Blood Culture - Preliminary Blood SPECIMEN COLLECTED 01/14/22 12:01 Blood Culture - Preliminary Blood SPECIMEN COLLECTED A&P Assessment and plan (1) Acute non-ST elevation myocardial infarction (NSTEMI): Status: Acute (2) Acute respiratory failure with hypoxia: Status: Acute (3) Atrial fibrillation, new onset: Status: Acute (4) Anoxic brain injury: 76-year-old woman who lacks vegetative function. She has no brainstem reflexes with absent pupillary and doll's eyes. Although there was no witnessed arrest she has marked elevation of troponin and has now developed cerebral edema based on her CT angiogram and she has full arterial supply to the brainstem (I looked at her arterial study) but the radiologist has noticed a change in her marshall-white matter differentiation consistent with diffuse anoxia. All of her findings included marked elevation of lactate and her neurologic exam consistent with an occult anoxic event with near in the middle of the night. I talked with her daughter about this and expressed my theory and very poor prognosis. Plans were made to transfer this patient because of possible cerebral venous thrombosis and she already has a bed at [facility]. I talked with Dr. Black. I talked with the patient's daughter. Status: Acute Consult Attestations Medical Necessity Statement: Profound neurologic changes with requirement for intubation Time Spent in Patient Care: I spent 1 hour in patient's care including [id number] with the patient and her daughter, reviewing her CT scan earlier and her CT angiogram in the emergency room along with her CT venogram. Coding Level of Care Code Acute Quality Control Engineering Technician for edilberto Bedolla Diagnoses Acute non-ST elevation myocardial infarction (NSTEMI) I21.4 Acute respiratory failure with hypoxia J96.01 Atrial fibrillation, new onset I48.91 Anoxic brain injury G93.1
[2022-01-14] MEDS: aspirin 300 mg Supp 600 MG PR (17:50)
[2022-01-14 19:04] LABS: Troponin 5 6HR 388.1 ng/L (0-10); Troponin 5 6HR Delta 288.1 ng/L (0-12)
== END 2022-01-14 18:00 | disposition short-term general hospital (02) ==
PROVIDERS: Emergency Provider Emergency Medicine; PCP Nurse Practitioner
DX: R41.82 Altered mental status, unspecified (principal); J96.01 Acute respiratory failure with hypoxia; I21.4 Non-ST elevation (NSTEMI) myocardial infarction; I10 Essential (primary) hypertension; I48.91 Unspecified atrial fibrillation; D72.829 Elevated white blood cell count, unspecified; E87.2 Acidosis
CPT/HCPCS: 31500; 36415; 36416; 36600; 36620; 51702; 70450; 70496; 71045; 71250; 74176; 80053; 80307; 81001; 82803; 82962; 83605; 83735; 83880; 84443; 84484; 85025; 85610; 85730; 86140; 87040; 87070; 87077; 87205; 87426; 93005; 94002; 94799; 96365; 96366; 96375; 99291; 99292; J2543; J2704; J3010; J3490; J7030; J7040; J7050; Q9967